=== PATIENT | female | born 1965 | race Caucasian/White ===

== ENCOUNTER 2021-11-16 08:38 | Emergency (ER) | payer OTHER ==
[2021-11-16 10:27] LABS: HEMOGLOBIN 14.6 gm/dl (12.3-15.3); RED BLOOD COUNT 5.02 M/UL (4.00-5.10); WHITE BLOOD COUNT 8.1 K/UL (4.5-11.0)
[2021-11-16 10:51] LABS: BUN/CREATININE RATIO 16 (0-10)
[2021-11-16] MEDS ORDERED: PROVENTIL HFA6.7 GM INH (13:15)
[2021-11-16] MEDS ORDERED: MEDROL DOSEPAK 24 MG PO (13:15)
== END 2021-11-16 13:30 | disposition home or self-care (01) ==
LOC: ER1 08:38
PROVIDERS: Physician Assistant
DX: R06.02 Shortness of breath (principal); I10 Essential (primary) hypertension; E78.5 Hyperlipidemia, unspecified; K21.9 Gastro-esophageal reflux disease without esophagitis; F17.200 Nicotine dependence, unspecified, uncomplicated
CPT/HCPCS: 36600; 71045; 80053; 82550; 82553; 82803; 84484; 85025; 85379; 93005; 94664; 94760; 96374; 99285; J2930